=== PATIENT | male | born 1945 | race Caucasian/White ===

== ENCOUNTER 2018-03-14 05:48 | Inpatient (IN) ==
[2018-03-14] MEDS ORDERED: ceFAZolin 1,000 MG in SYRINGE 1 EACH IV ONE (06:30)
[2018-03-14] MEDS ORDERED: VANCOMYCIN INJ 1,000 MG in SODIUM CHLORIDE 0.9% 250 ML IV ONE (06:30)
[2018-03-14] MEDS ORDERED: ceFAZolin 2,000 MG in PREMIX 1 EACH IV ONE (07:15)
[2018-03-14] MEDS ORDERED: BACITRACIN OINT 0.9 GM PACK TOP ONE ×2 (08:26→10:22)
[2018-03-14] MEDS ORDERED: LACTATED RINGERS 1,000 ML IV SCH ×2 (08:30→11:30)
[2018-03-14] MEDS ORDERED: BUPIVACAINE SPINAL 0.75% 2 ML AMP SPINAL ONE (09:24)
[2018-03-14] MEDS ORDERED: ceFAZolin 1,000 MG VIAL ONE (09:28)
[2018-03-14] MEDS ORDERED: VANCOMYCIN 1,000 MG VIAL ONE (09:28)
[2018-03-14] MEDS ORDERED: TRANEXAMIC ACID 1,000 MG/10 ML VIAL ONE (10:22)
[2018-03-14] MEDS ORDERED: NITROGLYCERIN SL 0.4 MG TABLET SL PRN (11:14)
[2018-03-14] MEDS ORDERED: oxyCODONE IR 5 MG TABLET PO PRN ×2 (11:16)
[2018-03-14] MEDS ORDERED: MORPHINE 4 MG/1 ML VIAL IV PRN (11:16)
[2018-03-14] MEDS ORDERED: MAGNESIUM HYDROXIDE SUSP 30 ML UDCUP PO PRN (11:16)
[2018-03-14] MEDS ORDERED: ZALEPLON 5 MG CAPSULE PO PRN (11:16)
[2018-03-14] MEDS ORDERED: diphenhydrAMINE CAP 25 MG CAPSULE PO PRN (11:16)
[2018-03-14] MEDS ORDERED: ONDANSETRON 4 MG/2 ML VIAL IV PRN (11:16)
[2018-03-14] MEDS ORDERED: ROPIVACAINE 0.5% 30 ML VIAL ONE (11:26)
[2018-03-14] MEDS ORDERED: fentaNYL 100 MCG/2 ML VIAL ONE (11:33)
[2018-03-14] MEDS ORDERED: MIDAZOLAM 2 MG/2 ML VIAL ONE (11:33)
[2018-03-14] MEDS ORDERED: PROPOFOL 200 MG/20 ML VIAL IV ONE (11:33)
[2018-03-14] MEDS ORDERED: PHENYLEPHRINE 1 MG/10 ML SYRINGE IV ONE (11:34)
[2018-03-14] MEDS: KETOROLAC 15 MG/1 ML VIAL IV SCH ×3 (13:31→23:48)
[2018-03-14] MEDS: ACETAMINOPHEN 500 MG TABLET PO SCH ×2 (18:15→23:45)
[2018-03-14] MEDS: ceFAZolin 2,000 MG in PREMIX 1 EACH IV SCH ×2 (18:15→23:45)
[2018-03-14] MEDS: MORPHINE 4 MG/1 ML VIAL IV PRN (19:47)
[2018-03-14] MEDS: CARVEDILOL 12.5 MG TABLET PO SCH (20:49)
[2018-03-14] MEDS: DOCUSATE SODIUM 100 MG CAPSULE PO SCH (20:49)
[2018-03-15] MEDS: MORPHINE 4 MG/1 ML VIAL IV PRN ×2 (01:42→05:31)
[2018-03-15] MEDS: KETOROLAC 15 MG/1 ML VIAL IV SCH (05:26)
[2018-03-15] MEDS: ACETAMINOPHEN 500 MG TABLET PO SCH ×2 (05:26→10:00)
[2018-03-15] MEDS ORDERED: FONDAPARINUX 2.5 MG/0.5 ML SYRINGE SUBCUT SCH (06:00)
[2018-03-15 06:17] LABS: Basophils # 0.1 10*3/uL (0.0-0.2); Basophils % 0.4 % (0.0-0.8); Eosinophils # 0.3 10*3/uL (0.0-0.87); Eosinophils % 2.6 % (0.00-10.9); Hematocrit 37.7 VOL% (42.0-52.0); Hemoglobin 13.3 GM/DL (14.0-18.0); Immature Granulocytes % 0.5 %; Immature Granulocytes Absolute 0.06 #; Lymphocytes # 2.6 10*3/uL (1.4-4.0); Lymphocytes % 21.7 % (21.2-54.2); Mean Corpuscular HGB Conc 35.3 GM/DL (32-36); Mean Corpuscular Hemoglobin 30 PG (27-34); Mean Corpuscular Volume 86.1 FL (87-102); Mean Platelet Volume 9.9 FL (9.6-12.0); Monocytes # 1.3 10*3/uL (0.11-0.8); Monocytes % 10.9 % (1.7-12.7); Neutrophils # 7.5 10*3/uL (1.4-7.4); Neutrophils % 63.9 % (38.7-73.9); Platelet Count 249 T/CUMM (130-400); Red Blood Count 4.38 MC/CUMM (3.8-5.5); Red Cell Distribution Width 12.5 % (9.3-17.3); White Blood Count 11.7 T/CUMM (4-12)
[2018-03-15 06:45] LABS: Calcium 8.4 MG/DL (8.5-10.1); Osmolality,Calculated 277.7 MOS/KG (273-304)
[2018-03-15] MEDS ORDERED: LEVOTHYROXINE 150 MCG TABLET PO SCH (07:00)
[2018-03-15] MEDS ORDERED: ROSUVASTATIN 20 MG TABLET PO SCH (09:00)
[2018-03-15] MEDS ORDERED: PANTOPRAZOLE 40 MG TABLET PO SCH (09:00)
[2018-03-15] MEDS ORDERED: ASPIRIN EC 81 MG TABLET PO SCH (09:00)
[2018-03-15] MEDS ORDERED: TAMSULOSIN 0.4 MG CAPSULE PO SCH (09:00)
[2018-03-15] MEDS ORDERED: NON-FORMULARY MEDICATION (Cholecalciferol (Vitamin D3) [Vitamin D3] 50,000 UNIT) PO SCH (09:00)
[2018-03-15] MEDS ORDERED: amLODIPine 2.5 MG TABLET PO SCH (09:00)
[2018-03-15] MEDS: DOCUSATE SODIUM 100 MG CAPSULE PO SCH (09:54)
[2018-03-15] MEDS: CARVEDILOL 12.5 MG TABLET PO SCH (09:54)
[2018-03-15 12:54] VITALS: BP 142/68
[2018-03-15] MEDS ORDERED: CELECOXIB 200 MG CAPSULE PO SCH (17:30)
== END 2018-03-15 14:25 | disposition home health service (06) | DRG 470 ==
LOC: N.OR 05:48 → N.SDSINP 05:54 → N.3E 10:46
PROVIDERS: ADMIT Orthopaedic Surgery; ATTEND Orthopaedic Surgery

== ENCOUNTER 2018-05-11 13:13 | Inpatient (IN) ==
[2018-05-11 14:24] LABS: Basophils # 0.1 10*3/uL (0.0-0.2); Basophils % 0.7 % (0.0-0.8); Eosinophils # 0.4 10*3/uL (0.0-0.87); Eosinophils % 4.1 % (0.00-10.9); Hemoglobin 14.8 GM/DL (14.0-18.0); Immature Granulocytes % 0.2 %; Immature Granulocytes Absolute 0.02 #; Lymphocytes # 2.9 10*3/uL (1.4-4.0); Lymphocytes % 34.3 % (21.2-54.2); Mean Corpuscular HGB Conc 33.6 GM/DL (32-36); Mean Corpuscular Hemoglobin 30 PG (27-34); Mean Corpuscular Volume 89.2 FL (87-102); Mean Platelet Volume 9.4 FL (9.6-12.0); Monocytes # 0.6 10*3/uL (0.11-0.8); Monocytes % 7.1 % (1.7-12.7); Neutrophils # 4.5 10*3/uL (1.4-7.4); Neutrophils % 53.6 % (38.7-73.9); Platelet Count 350 T/CUMM (130-400); Red Blood Count 4.93 MC/CUMM (3.8-5.5); Red Cell Distribution Width 13.4 % (9.3-17.3); White Blood Count 8.5 T/CUMM (4-12)
[2018-05-11 14:32] LABS: PT Patient Result 10.2 SECS; Partial Thromboplastin Time 27.7 SECS (0-40)
[2018-05-11 15:00] LABS: Alanine Aminotransferase 22 U/L (16-61); Alkaline Phosphatase 68 U/L (45-117); Aspartate Amino Transferase 13 U/L (0-37); Blood Urea Nitrogen 17 MG/DL (7-18); Calcium 9.2 MG/DL (8.5-10.1); Glucose 135 MG/DL (74-106); Osmolality,Calculated 280.5 MOS/KG (273-304); Sodium 139 MMOL/L (136-145); Total Protein 7.9 G/DL (6.4-8.3); Troponin I Only < 0.015 NG/ML (0.00-0.045)
[2018-05-11 17:26] LABS: Amorphous Crystals,Urine Occasional /HPF (Few); Apearance,Urine Slightly Hazy (Clear); Bilirubin,Urine Negative (Negative); Blood, Urine Negative (Negative); Glucose,Urine (UA) Negative (Negative); Ketones,Urine Negative (Negative); Mucus,Urine Occasional /LPF (Occasional); Nitrite,Urine Negative (Negative); Protein,Urine Negative; RBC,Urine 1 /HPF (0-4); Urine Color Yellow (Yellow); Urine Specific Gravity 1.016 (1.001-1.035); Urine Urobilinogen < 2.0 EU/DL (0.2-1.0); WBC,Urine <1 /HPF (0-6)
[2018-05-11 17:29] LABS: Barbiturates Screen,Urine Negative (Negative); Benzodiazepines Screen,Urine Negative (Negative); Cannabinoid Screen,Urine Negative (Negative); Opiate Screen,Urine Negative (Negative); Phencyclidine Screen,Urine Negative (Negative)
[2018-05-11] MEDS ORDERED: ONDANSETRON 4 MG/2 ML VIAL IV PRN (18:19)
[2018-05-11] MEDS ORDERED: ACETAMINOPHEN 325 MG TABLET PO PRN (18:19)
[2018-05-11] MEDS: SODIUM CHLORIDE 0.9% 1,000 ML IV SCH (18:41)
[2018-05-11] MEDS: DOCUSATE SODIUM 100 MG CAPSULE PO SCH (20:54)
[2018-05-11] MEDS: ASPIRIN EC 81 MG TABLET PO SCH (20:54)
[2018-05-11] MEDS: CARVEDILOL 12.5 MG TABLET PO SCH (20:54)
[2018-05-11] MEDS: traMADol 50 MG TABLET PO PRN (23:07)
[2018-05-12] MEDS: SODIUM CHLORIDE 0.9% 1,000 ML IV SCH ×2 (04:43→10:48)
[2018-05-12 04:57] LABS: Basophils # 0.1 10*3/uL (0.0-0.2); Basophils % 0.7 % (0.0-0.8); Eosinophils # 0.5 10*3/uL (0.0-0.87); Hematocrit 40.2 VOL% (42.0-52.0); Hemoglobin 13.3 GM/DL (14.0-18.0); Immature Granulocytes % 0.3 %; Immature Granulocytes Absolute 0.03 #; Lymphocytes # 3.8 10*3/uL (1.4-4.0); Lymphocytes % 39.9 % (21.2-54.2); Mean Corpuscular HGB Conc 33.1 GM/DL (32-36); Mean Corpuscular Hemoglobin 30 PG (27-34); Mean Corpuscular Volume 89.1 FL (87-102); Mean Platelet Volume 9.5 FL (9.6-12.0); Monocytes # 0.9 10*3/uL (0.11-0.8); Neutrophils # 4.3 10*3/uL (1.4-7.4); Neutrophils % 45.1 % (38.7-73.9); Platelet Count 307 T/CUMM (130-400); Red Blood Count 4.51 MC/CUMM (3.8-5.5); Red Cell Distribution Width 13.5 % (9.3-17.3); White Blood Count 9.6 T/CUMM (4-12)
[2018-05-12 05:33] LABS: Albumin 3.6 G/DL (3.4-5.0); Bilirubin,Total 0.6 MG/DL (0.2-1.0); Osmolality,Calculated 280.4 MOS/KG (273-304); Potassium 3.9 MMOL/L (3.5-5.1)
[2018-05-12] MEDS: LEVOTHYROXINE 150 MCG TABLET PO SCH (05:50)
[2018-05-12] MEDS: DOCUSATE SODIUM 100 MG CAPSULE PO SCH ×2 (09:02→20:47)
[2018-05-12] MEDS: CARVEDILOL 12.5 MG TABLET PO SCH ×2 (09:02→20:46)
[2018-05-12] MEDS: PANTOPRAZOLE 40 MG TABLET PO SCH (09:02)
[2018-05-12] MEDS: ROSUVASTATIN 20 MG TABLET PO SCH (09:02)
[2018-05-12] MEDS: traMADol 50 MG TABLET PO PRN ×2 (16:29→20:47)
[2018-05-12] MEDS ORDERED: TAMSULOSIN 0.4 MG CAPSULE PO SCH (17:00)
[2018-05-12] MEDS: CILOSTAZOL 100 MG TABLET PO SCH (20:46)
[2018-05-12] MEDS: ASPIRIN EC 81 MG TABLET PO SCH (20:47)
[2018-05-13 05:23] LABS: Basophils # 0.1 10*3/uL (0.0-0.2); Basophils % 0.6 % (0.0-0.8); Eosinophils # 0.5 10*3/uL (0.0-0.87); Eosinophils % 3.7 % (0.00-10.9); Hematocrit 43.6 VOL% (42.0-52.0); Hemoglobin 14.3 GM/DL (14.0-18.0); Immature Granulocytes % 0.4 %; Immature Granulocytes Absolute 0.05 #; Lymphocytes % 31.8 % (21.2-54.2); Mean Corpuscular HGB Conc 32.8 GM/DL (32-36); Mean Corpuscular Hemoglobin 30 PG (27-34); Mean Corpuscular Volume 90.3 FL (87-102); Mean Platelet Volume 9.7 FL (9.6-12.0); Monocytes % 8.1 % (1.7-12.7); Neutrophils % 55.4 % (38.7-73.9); Platelet Count 336 T/CUMM (130-400); Red Blood Count 4.83 MC/CUMM (3.8-5.5); Red Cell Distribution Width 13.3 % (9.3-17.3); White Blood Count 12.6 T/CUMM (4-12)
[2018-05-13 06:06] LABS: Calcium 9.5 MG/DL (8.5-10.1); Osmolality,Calculated 277.5 MOS/KG (273-304); Potassium 3.8 MMOL/L (3.5-5.1)
[2018-05-13] MEDS: LEVOTHYROXINE 150 MCG TABLET PO SCH (06:20)
[2018-05-13 07:07] LABS: Risk Ratio 3.46; Thyroid Stimulating Hormone 14.3 uIU/ml (0.358-3.74); VLDL CHOLESTEROL 25.4 MG/DL
[2018-05-13] MEDS: ROSUVASTATIN 20 MG TABLET PO SCH (08:40)
[2018-05-13] MEDS: CARVEDILOL 12.5 MG TABLET PO SCH (08:40)
[2018-05-13] MEDS: PANTOPRAZOLE 40 MG TABLET PO SCH (08:40)
[2018-05-13] MEDS: DOCUSATE SODIUM 100 MG CAPSULE PO SCH (08:41)
[2018-05-13] MEDS: CILOSTAZOL 100 MG TABLET PO SCH (08:41)
[2018-05-13] MEDS ORDERED: CLOPIDOGREL 75 MG TABLET PO SCH (09:00)
[2018-05-13] MEDS ORDERED: LEVOTHYROXINE 175 MCG TABLET PO SCH (09:25)
[2018-05-13] MEDS ORDERED: amLODIPine 5 MG TABLET PO SCH (09:30)
[2018-05-13] MEDS: SODIUM CHLORIDE 0.9% 1,000 ML IV SCH (10:48)
[2018-05-13 12:50] VITALS: BP 141/93
[2018-05-13] MEDS ORDERED: APIXABAN 5 MG TABLET PO SCH (14:00)
== END 2018-05-13 16:30 | disposition home or self-care (01) | DRG 65 ==
LOC: N.ED 13:13 → N.EDINP 16:17 → N.4E 17:30
PROVIDERS: ADMIT Family Medicine; ATTEND Family Medicine

== ENCOUNTER 2020-03-26 07:01 | Inpatient (IN) ==
[2020-03-21 11:46] LABS: Basophils % 0.4 % (0.0-0.8); Eosinophils # 0.4 10*3/uL (0.0-0.87); Eosinophils % 4.8 % (0.00-10.9); Hematocrit 45.3 VOL% (42.0-52.0); Immature Granulocytes % 0.2 %; Immature Granulocytes Absolute 0.02 #; Lymphocytes # 3.3 10*3/uL (1.4-4.0); Lymphocytes % 36.1 % (21.2-54.2); Mean Corpuscular HGB Conc 33.1 GM/DL (32-36); Mean Corpuscular Volume 89.3 FL (87-102); Mean Platelet Volume 9.8 FL (9.6-12.0); Monocytes % 9.5 % (1.7-12.7); Platelet Count 271 T/CUMM (130-400); Red Blood Count 5.07 MC/CUMM (3.8-5.5); Red Cell Distribution Width 13.4 % (9.3-17.3); White Blood Count 9.2 T/CUMM (4-12)
[2020-03-21 11:57] LABS: Albumin 3.6 G/DL (3.4-5.0); Bilirubin,Total 1.8 MG/DL (0.2-1.0); Calcium 9.3 MG/DL (8.5-10.1); Osmolality,Calculated 276.7 MOS/KG (273-304); Total Protein 7.7 G/DL (6.4-8.3)
[~2020-03-26 07:01] MED LIST: ACETAMINOPHEN 500 MG TABLET PO ONE; DIAZEPAM 5 MG TABLET PO ONE; FAMOTIDINE 20 MG TABLET PO ONE; GABAPENTIN 400 MG CAPSULE PO ONE; ceFAZolin 2,000 MG in PREMIX 1 EACH IV ONE
[2020-03-26] MEDS ORDERED: GABAPENTIN 400 MG CAPSULE ONE (07:22)
[2020-03-26] MEDS ORDERED: DIAZEPAM 5 MG TABLET ONE (07:22)
[2020-03-26] MEDS ORDERED: FAMOTIDINE 20 MG TABLET ONE (07:22)
[2020-03-26] MEDS ORDERED: ACETAMINOPHEN 500 MG TABLET ONE (07:22)
[2020-03-26] MEDS ORDERED: BUPIVACAINE 0.5% 50 ML VIAL ONE (07:46)
[2020-03-26] MEDS ORDERED: VANCOMYCIN 500 MG VIAL ONE (07:46)
[2020-03-26] MEDS ORDERED: HEPARIN 5,000 UNIT/1 ML VIAL ONE ×2 (07:46→12:21)
[2020-03-26] MEDS ORDERED: LIDOCAINE 1% 20 ML VIAL ONE (07:46)
[2020-03-26] MEDS: LACTATED RINGERS 1,000 ML IV SCH ×3 (07:46→20:59)
[2020-03-26] MEDS ORDERED: ONDANSETRON 4 MG/2 ML VIAL IV PRN ×2 (12:00→12:49)
[2020-03-26] MEDS ORDERED: traMADol 50 MG TABLET PO PRN (12:03)
[2020-03-26] MEDS ORDERED: NITROGLYCERIN SL 0.4 MG TABLET SL PRN (12:03)
[2020-03-26] MEDS ORDERED: MELATONIN 3 MG TABLET PO PRN (12:03)
[2020-03-26] MEDS ORDERED: fentaNYL 100 MCG/2 ML VIAL ONE (12:25)
[2020-03-26] MEDS ORDERED: SEVOFLURANE 1 UNIT/15 MINUTE INH ONE (12:25)
[2020-03-26] MEDS ORDERED: propofoL 200 MG/20 ML VIAL IV ONE (12:25)
[2020-03-26] MEDS ORDERED: PHENYLEPHRINE DRIP 20 MG/250 ML PREMIX IV ONE (12:25)
[2020-03-26] MEDS ORDERED: HEPARIN 10,000 UNIT/10 ML VIAL ONE (12:25)
[2020-03-26] MEDS ORDERED: MIDAZOLAM 2 MG/2 ML VIAL ONE (12:25)
[2020-03-26] MEDS ORDERED: LIDOCAINE 1% 5 ML VIAL ONE (12:25)
[2020-03-26] MEDS ORDERED: LACTATED RINGERS 1,000 ML IV ONE (12:26)
[2020-03-26] MEDS ORDERED: ETOMIDATE 40 MG/20 ML VIAL IV ONE (12:26)
[2020-03-26] MEDS ORDERED: GLYCOPYRROLATE 0.4 MG/2 ML VIAL ONE (12:26)
[2020-03-26] MEDS ORDERED: ROCURONIUM 100 MG/10 ML VIAL IV ONE (12:26)
[2020-03-26] MEDS ORDERED: ePHEDrine 50 MG/ML VIAL ONE (12:26)
[2020-03-26] MEDS ORDERED: HYDROmorphone 2 MG/1 ML VIAL ONE (12:42)
[2020-03-26] MEDS ORDERED: ONDANSETRON 4 MG/2 ML VIAL ONE (12:42)
[2020-03-26] MEDS ORDERED: HYDROmorphone 2 MG/1 ML VIAL IV PRN (12:49)
[2020-03-26 14:16] LABS: Hematocrit 39.2 VOL% (42.0-52.0); Hemoglobin 13.1 GM/DL (14.0-18.0)
[2020-03-26] MEDS: HYDROmorphone 2 MG/1 ML VIAL IV PRN ×3 (14:48→21:52)
[2020-03-26] MEDS: TAMSULOSIN 0.4 MG CAPSULE PO SCH (17:19)
[2020-03-26] MEDS: PANTOPRAZOLE 40 MG TABLET PO SCH (20:55)
[2020-03-26] MEDS: MELOXICAM 7.5 MG TABLET PO SCH (20:55)
[2020-03-26] MEDS: cilostazoL 100 MG TABLET PO SCH (20:55)
[2020-03-26] MEDS: carvediloL 12.5 MG TABLET PO SCH (21:01)
[2020-03-27] MEDS: HYDROmorphone 2 MG/1 ML VIAL IV PRN ×6 (00:22→22:23)
[2020-03-27 03:25] LABS: Hematocrit 42.1 VOL% (42.0-52.0); Hemoglobin 13.6 GM/DL (14.0-18.0)
[2020-03-27 03:39] LABS: Calcium 8.4 MG/DL (8.5-10.1); Osmolality,Calculated 273.8 MOS/KG (273-304)
[2020-03-27] MEDS: LACTATED RINGERS 1,000 ML IV SCH ×2 (05:12→05:17)
[2020-03-27] MEDS: LEVOTHYROXINE 175 MCG TABLET PO SCH (06:05)
[2020-03-27] MEDS: cilostazoL 100 MG TABLET PO SCH ×2 (08:29→21:02)
[2020-03-27] MEDS: ROSUVASTATIN 20 MG TABLET PO SCH (08:29)
[2020-03-27] MEDS: CHOLECALCIFEROL 5,000 UNIT TABLET PO SCH (08:29)
[2020-03-27] MEDS: amLODIPine 5 MG TABLET PO SCH (08:30)
[2020-03-27] MEDS: carvediloL 12.5 MG TABLET PO SCH ×2 (08:30→21:02)
[2020-03-27] MEDS: MELOXICAM 7.5 MG TABLET PO SCH ×2 (08:30→21:02)
[2020-03-27] MEDS: ASPIRIN EC 81 MG TABLET PO SCH (08:30)
[2020-03-27] MEDS ORDERED: ASPIRIN CHEW 81 MG TABLET PO SCH (09:00)
[2020-03-27] MEDS: TAMSULOSIN 0.4 MG CAPSULE PO SCH (16:22)
[2020-03-27] MEDS: PANTOPRAZOLE 40 MG TABLET PO SCH (21:02)
[2020-03-28] MEDS: HYDROmorphone 2 MG/1 ML VIAL IV PRN ×2 (01:21→03:40)
[2020-03-28] MEDS: LEVOTHYROXINE 175 MCG TABLET PO SCH (05:30)
[2020-03-28 06:42] LABS: Apearance,Urine CLEAR (Clear); Bilirubin,Urine Negative (Negative); Blood, Urine Negative (Negative); Glucose,Urine (UA) Negative (Negative); Ketones,Urine 80 mg/dL (Negative); Mucus,Urine Occasional /LPF (Occasional); Nitrite,Urine Negative (Negative); Protein,Urine Negative; RBC,Urine 2 /HPF (0-4); Squamous Epithelial Cell,Urine Occasional /HPF (0-10); Urine Color Yellow (Yellow); Urine Specific Gravity 1.023 (1.001-1.035); Urine Urobilinogen < 2.0 EU/DL (0.2-1.0); WBC,Urine 1 /HPF (0-6)
[2020-03-28] MEDS: ROSUVASTATIN 20 MG TABLET PO SCH (09:15)
[2020-03-28] MEDS: amLODIPine 5 MG TABLET PO SCH (09:15)
[2020-03-28] MEDS: MELOXICAM 7.5 MG TABLET PO SCH (09:16)
[2020-03-28] MEDS: cilostazoL 100 MG TABLET PO SCH (09:16)
[2020-03-28] MEDS: carvediloL 12.5 MG TABLET PO SCH (09:16)
[2020-03-28] MEDS: CHOLECALCIFEROL 5,000 UNIT TABLET PO SCH (09:16)
[2020-03-28] MEDS: ASPIRIN EC 81 MG TABLET PO SCH (09:16)
[2020-03-28 09:45] VITALS: BP 132/82
== END 2020-03-28 09:55 | disposition home or self-care (01) | DRG 271 ==
LOC: N.SDSINP 07:01 → N.4E 13:35
PROVIDERS: ADMIT Surgery; ATTEND Surgery